=== PATIENT | female | born 1995 | race Two or more races ===

== ENCOUNTER → 2024-05-31 | Outpatient (CLI) | payer MEDICAID, SELFPAY ==
--- NOTE | 2024-05-31 14:30 | XR_ITS ---
Examination: Abdomen sonogram, complete Date and time of exam: Every 2024 1435 hours INDICATIONS: Hematuria episodes months. Technique: Multiple real-time grayscale transabdominal sonographic images of the abdomen have been obtained. Findings: Normal gallbladder Normal common bile duct 0.3 cm Pancreatic head 2.4 cm Aorta not enlarged Liver 15.9 cm fatty infiltration no focal liver lesions Normal hepatopedal portal venous flow Patent IVC Right kidney 11.2 x 4.0 x 5.4 cm renal cortex 1.4 cm Left kidney 10.8 x 4.3 x 5.1 cm cortex 1.5 cm Mild bilateral renal parenchymal scar formation No hydronephrosis Spleen 12.2 cm IMPRESSION: Normal gallbladder Fatty liver No renal calculi
== END | disposition home or self-care (01) ==
PROVIDERS: PCP Nurse Practitioner Family; Referring Provider Internal Medicine Nephrology; Visit Provider Internal Medicine Nephrology
DX: K76.0 Fatty (change of) liver, not elsewhere classified (principal)
CPT/HCPCS: 76700